=== PATIENT | female | born 1995 | race Caucasian/White ===

== ENCOUNTER 2019-02-01 20:05 | Outpatient (CLI) | payer MEDICAID, OTHER ==
[~2019-02-01] VITALS: Ht 167.6 cm; Wt 106.9 kg
[~2019-02-01 20:05] MED LIST: PREN-93 PO
[2019-02-01 20:25] VITALS: BP 119/63; PULSE 74; RESP 18; Ht 167.6 cm; Wt 106.9 kg
== END 2019-02-01 21:03 | disposition home or self-care (01) ==
LOC: OBT 20:05 → L-D 20:05 → OBT 21:03
PROVIDERS: ATTEND Obstetrics & Gynecology
DX: O62.9 Abnormality of forces of labor, unspecified (principal); Z3A.38 38 weeks gestation of pregnancy
CPT/HCPCS: G0463